=== PATIENT | male | born 1975 | race Caucasian/White ===

== ENCOUNTER 2016-07-11 08:39 | Emergency (ER) | payer OTHER ==
[2016-07-11 10:52] LABS: HEMOGLOBIN 15.4 gm/dl (14.0-17.5); RED BLOOD COUNT 4.83 M/UL (4.20-5.50); WHITE BLOOD COUNT 20.6 K/UL (4.5-11.0)
[2016-07-11 11:12] LABS: BUN/CREATININE RATIO 12 (0-10)
== END 2016-07-11 14:45 | disposition home or self-care (01) ==
LOC: ER1 08:39
PROVIDERS: Physician Assistant
DX: G89.18 Other acute postprocedural pain (principal); D72.829 Elevated white blood cell count, unspecified; Z88.5 Allergy status to narcotic agent; Z90.89 Acquired absence of other organs; Z90.49 Acquired absence of other specified parts of digestive tract; F41.9 Anxiety disorder, unspecified; Z79.899 Other long term (current) drug therapy
CPT/HCPCS: 36415; 80053; 83605; 85025; 87040; 93005; 96361; 96365; 96375; 99283; J0696; J1885; J2060; J2270; J2405; J2930; J7030; J7050

== ENCOUNTER → 2016-07-12 | Outpatient (CLI) | payer OTHER ==
[2016-07-12 15:26] LABS: HEMOGLOBIN 13.8 gm/dl (14.0-17.5); RED BLOOD COUNT 4.38 M/UL (4.20-5.50); WHITE BLOOD COUNT 12.8 K/UL (4.5-11.0)
== END ==
LOC: LAB 14:58
PROVIDERS: Physician Assistant
DX: D72.829 Elevated white blood cell count, unspecified (principal)
CPT/HCPCS: 36415; 85025

== ENCOUNTER → 2020-05-28 | Outpatient (CLI) | payer OTHER | LOC: RAD 14:17 | DX: M54.2 Cervicalgia (principal) | CPT/HCPCS: 72040 ==

== ENCOUNTER → 2020-06-02 | Outpatient (CLI) | payer OTHER | LOC: EXRD 13:30 | DX: M54.2 Cervicalgia (principal) | CPT/HCPCS: 76536 ==

== ENCOUNTER → 2020-06-17 | Outpatient (CLI) | payer OTHER | LOC: EXRD 06-09 10:00 | DX: R74.8 Abnormal levels of other serum enzymes (principal); K76.0 Fatty (change of) liver, not elsewhere classified | CPT/HCPCS: 76705 ==

== ENCOUNTER 2021-08-21 05:41 | Emergency (ER) | payer OTHER | END 2021-08-21 10:40 | disposition short-term general hospital (02) | LOC: ER1 05:41 | DX: S98.142A Partial traumatic amputation of one left lesser toe, initial encounter (principal); S63.8X1A Sprain of other part of right wrist and hand, initial encounter; W54.0XXA Bitten by dog, initial encounter; Z20.822 Contact with and (suspected) exposure to COVID-19 | CPT/HCPCS: 73090; 73110; 73660; 90471; 90715; 96365; 96375; 99284; J0295; J1170; J2060; J2405; J2550; U0002 ==